=== PATIENT | male | born 1990 | race Caucasian/White ===

== ENCOUNTER 2020-04-30 19:32 | Emergency (ER) | payer BC, OTHER ==
[2020-04-30] MEDS ORDERED: Lidocaine 1% w/Epinephrine 1:100K 20 ML VIAL ONE (19:46)
[2020-04-30] MEDS ORDERED: Adacel (T-DAP) 0.5 ML SYRINGE ONE (19:58)
[2020-04-30] MEDS ORDERED: Bacitracin 1 PK ONE (20:13)
== END 2020-04-30 20:23 | disposition home or self-care (01) ==
LOC: MADERS 19:32
DX: S51.812A Laceration without foreign body of left forearm, initial encounter (principal); Z23 Encounter for immunization; F17.210 Nicotine dependence, cigarettes, uncomplicated; I10 Essential (primary) hypertension; X58.XXXA Exposure to other specified factors, initial encounter
CPT/HCPCS: 12002; 90471; 90715